=== PATIENT | female | born 1990 ===

== ENCOUNTER 2017-11-10 23:42 | Outpatient (CLI) | payer BC ==
[~2017-11-10] VITALS: Ht 170.2 cm; Wt 77.3 kg
[2017-11-10 23:56] VITALS: BP 111/65
[2017-11-11] MEDS ORDERED: PREN-59 PO (00:03)
== END 2017-11-11 00:15 | disposition home or self-care (01) ==
LOC: LDOP 23:42
PROVIDERS: ATTEND Obstetrics & Gynecology Maternal & Fetal Medicine
DX: O36.8130 Decreased fetal movements, third trimester, not applicable or unspecified (principal); Z3A.34 34 weeks gestation of pregnancy
CPT/HCPCS: 59025; 99201; G0463

== ENCOUNTER 2017-12-18 07:25 | Inpatient (IN) | payer BC ==
[~2017-12-18] VITALS: Ht 170.2 cm; Wt 79.5 kg
[~2017-12-18 07:25] MED LIST: PREN-59 PO
[2017-12-18] MEDS ORDERED: D5%-LACTATED RINGERS 1,000 ML IV SCH (07:34)
[2017-12-18] MEDS ORDERED: OXYTOCIN 30U/ 0.9% NaCL 500ML 500 ML IV PRN (07:34)
[2017-12-18] MEDS ORDERED: OXYTOCIN 30U/ 0.9% NaCL 500ML 500 ML IV ONE (07:34)
[2017-12-18] MEDS: LACTATED RINGERS 1,000 ML IV SCH ×2 (07:52→14:04)
[2017-12-18 07:59] LABS: BASOPHILS # (AUTO) 0.04 x10^3/uL (0-0.1); BASOPHILS % (AUTO) 0 % (0-1); EOSINOPHILS # (AUTO) 0.09 x10^3/uL (0-0.4); EOSINOPHILS % (AUTO) 1 % (1-7); LYMPHOCYTES # (AUTO) 1.49 x10^3/uL (1-3.4); LYMPHOCYTES % (AUTO) 15 % (22-44); MD NO; MEAN CORPUSCULAR HEMOGLOBIN 29.6 pg (27.0-34.8); MEAN CORPUSCULAR HGB CONC 33.6 g/dL (32.4-35.8); MEAN CORPUSCULAR VOLUME 88.1 fL (80-100); MEAN PLATELET VOLUME 8.1 fL (7.4-10.4); MONOCYTES # (AUTO) 0.46 x10^3/uL (0.2-0.8); MONOCYTES % (AUTO) 5 % (2-9); NEUTROPHILS # (AUTO) 7.78 x10^3/uL (1.8-6.8); NEUTROPHILS % (AUTO) 79 % (42-75); PLATELET COUNT 195 x10^3/uL (130-400); RED BLOOD COUNT 4.25 x10^6/uL (3.82-5.3); RED CELL DISTRIBUTION WIDTH 13.2 % (9.6-15.2)
[2017-12-18] MEDS ORDERED: FENTANYL PF 100 MCG/2ML IV PRN (08:00)
[2017-12-18] MEDS ORDERED: ONDANSETRON 2MG/ML, 2ML IVPush PRN (08:00)
[2017-12-18] MEDS ORDERED: TERBUTALINE 1 MG/ML, 1ML IVPush PRN (08:00)
[2017-12-18] MEDS ORDERED: METOCLOPRAMIDE 5 MG/ML, 2ML IVPush PRN (08:00)
[2017-12-18] MEDS ORDERED: SODIUM CITRATE/CITRIC ACID 30 ML UDC PO PRN (08:00)
[2017-12-18] MEDS ORDERED: FENTANYL PF 100 MCG/2ML IVPush PRN (08:00)
[2017-12-18] MEDS ORDERED: OXYTOCIN 30U/ 0.9% NaCL 500ML 500 ML ONE ×2 (08:19→16:25)
[2017-12-18] MEDS ORDERED: NEWBORN KIT ONE (08:19)
[2017-12-18] MEDS ORDERED: FENTANYL/BUPIV./NS/PF 250 ML EPIDCONT SCH (08:45)
[2017-12-18 08:50] VITALS: BP 112/78
[2017-12-18] MEDS ORDERED: FENTANYL PF 500 MCG, BUPIVACAINE/PF 0.5%, 30ML 62.5 ML in SODIUM CHLORIDE 0.9% 177.5 ML EPIDCONT SCH (09:30)
[2017-12-18] MEDS ORDERED: FENTANYL PF 100 MCG/2ML ONE (13:59)
[2017-12-18] MEDS ORDERED: TERBUTALINE 1 MG/ML, 1ML ONE (14:26)
[2017-12-18] MEDS: OXYTOCIN 30U/ 0.9% NaCL 500ML 500 ML IV SCH (14:47)
[2017-12-18] MEDS ORDERED: IBUPROFEN 600 MG TABLET ONE (14:50)
[2017-12-18] MEDS ORDERED: OXYcodone/APAP 5/325MG TABLET ONE (14:52)
[2017-12-18] MEDS: IBUPROFEN 600 MG TABLET PO PRN ×2 (14:54→21:37)
[2017-12-18] MEDS ORDERED: ACETAMINOPHEN 325 MG TABLET PO PRN (15:00)
[2017-12-18] MEDS ORDERED: OXYcodone/APAP 5/325MG TABLET PO PRN (15:00)
[2017-12-18] MEDS ORDERED: RHOGAM FROM BLOOD BANK 1 NOTE EA IM/IV ONE (15:00)
[2017-12-18] MEDS ORDERED: MISOPROSTOL 200 MCG TABLET PR PRN (15:00)
[2017-12-18] MEDS ORDERED: DIPH,PERTUSS(ACELL),TET VAC/PF NC IM-VACC PRN (15:00)
[2017-12-18] MEDS ORDERED: CARBOPROST TROMETHAMINE 250 MCG/ML, 1ML IM PRN (15:00)
[2017-12-18] MEDS ORDERED: METHYLERGONOVINE 0.2 MG/ML IM PRN (15:00)
[2017-12-18] MEDS ORDERED: MEASLES,MUMPS&RUBELLA VACC/PF 0.5 ML SQ PRN (15:00)
[2017-12-18 16:30] VITALS: BP 102/66
[2017-12-18] MEDS: OXYcodone/APAP 5/325MG TABLET PO PRN (19:30)
[2017-12-18 19:40] VITALS: BP 105/68
[2017-12-18] MEDS: DOCUSATE 100 MG CAPSULE PO PRN (21:37)
[2017-12-19 00:20] VITALS: BP 94/62
[2017-12-19] MEDS: OXYTOCIN 30U/ 0.9% NaCL 500ML 500 ML IV SCH ×2 (00:47→02:05)
[2017-12-19] MEDS: OXYcodone/APAP 5/325MG TABLET PO PRN ×3 (01:57→13:26)
[2017-12-19] MEDS: IBUPROFEN 600 MG TABLET PO PRN ×2 (04:06→13:26)
[2017-12-19 04:10] VITALS: BP 98/63
[2017-12-19 05:53] LABS: BASOPHILS # (AUTO) 0.03 x10^3/uL (0-0.1); BASOPHILS % (AUTO) 0 % (0-1); EOSINOPHILS # (AUTO) 0.15 x10^3/uL (0-0.4); EOSINOPHILS % (AUTO) 1 % (1-7); LYMPHOCYTES # (AUTO) 2.15 x10^3/uL (1-3.4); LYMPHOCYTES % (AUTO) 18 % (22-44); MD NO; MEAN CORPUSCULAR HEMOGLOBIN 30.5 pg (27.0-34.8); MEAN CORPUSCULAR HGB CONC 34.3 g/dL (32.4-35.8); MEAN CORPUSCULAR VOLUME 88.8 fL (80-100); MEAN PLATELET VOLUME 8.1 fL (7.4-10.4); MONOCYTES # (AUTO) 0.77 x10^3/uL (0.2-0.8); MONOCYTES % (AUTO) 6 % (2-9); NEUTROPHILS # (AUTO) 8.96 x10^3/uL (1.8-6.8); NEUTROPHILS % (AUTO) 74 % (42-75); PLATELET COUNT 164 x10^3/uL (130-400); RED CELL DISTRIBUTION WIDTH 13.3 % (9.6-15.2)
[2017-12-19 07:55] VITALS: BP 106/67
[2017-12-19] MEDS: DOCUSATE 100 MG CAPSULE PO PRN (07:56)
[2017-12-19] MEDS ORDERED: PRENATAL VIT/IRON/FA 1 EACH TABLET PO SCH (09:00)
== END 2017-12-19 15:10 | disposition home or self-care (01) | DRG 807 ==
LOC: LDIP 07:25 → 2NW 16:29
PROVIDERS: ADMIT Obstetrics & Gynecology Maternal & Fetal Medicine; ATTEND Obstetrics & Gynecology Maternal & Fetal Medicine
PROC: 10E0XZZ Delivery of Products of Conception, External Approach (ICD-10-PCS; principal; 2017-12-18)
PROC: 3E033VJ Introduction of Other Hormone into Peripheral Vein, Percutaneous Approach (ICD-10-PCS; 2017-12-18)
PROC: 10907ZC Drainage of Amniotic Fluid, Therapeutic from Products of Conception, Via Natural or Artificial Opening (ICD-10-PCS; 2017-12-18)
DX: O71.82 Other specified trauma to perineum and vulva (principal); Z37.0 Single live birth; Z3A.39 39 weeks gestation of pregnancy
CPT/HCPCS: 36415; 85025; 86850; 86900; G0378; J3010; J2590; J7120

== ENCOUNTER 2020-10-21 18:41 | Emergency (ER) | payer BC, OTHER ==
[~2020-10-21] VITALS: Ht 170.2 cm; Wt 64.6 kg
--- NOTE | 2020-10-21 19:21 | NUR ---
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
--- NOTE | 2020-10-21 19:30 | NUR ---
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
[2020-10-21 19:49] LABS: MICROSCOPIC AUTO
[2020-10-21 20:15] LABS: BASOPHILS % (AUTO) 0 % (0-1); EOSINOPHILS % (AUTO) 1 % (1-7); LYMPHOCYTES % (AUTO) 14 % (22-44); MEAN CORPUSCULAR HEMOGLOBIN 31.9 pg (27.0-34.8); MEAN CORPUSCULAR HGB CONC 34.5 g/dL (32.4-35.8); MEAN PLATELET VOLUME 7.4 fL (7.4-10.4); MONOCYTES % (AUTO) 6 % (2-9); NEUTROPHILS % (AUTO) 79 % (42-75); PLATELET COUNT 221 x10^3/uL (130-400); RED BLOOD COUNT 4.83 x10^6/uL (3.82-5.3); RED CELL DISTRIBUTION WIDTH 12.8 % (9.6-15.2)
[2020-10-21 20:25] LABS: ALBUMIN 3.5 g/dL (3.4-5.0); ANION GAP 6 mmol/L (5-15); CALCIUM 9.2 mg/dL (8.5-10.1); CHLORIDE 105 mmol/L (98-107)
[2020-10-21 20:31] LABS: ALANINE AMINOTRANSFERASE 24 U/L (12-78); ALKALINE PHOSPHATASE 68 U/L (45-117); BILIRUBIN,TOTAL 0.5 mg/dL (0.2-1.0); CREATININE 0.86 mg/dL (0.55-1.02); TOTAL PROTEIN 7.9 g/dL (6.4-8.2)
--- NOTE | 2020-10-22 00:14 | NUR ---
PT BACK TO ROOM
[2020-10-22 00:22] VITALS: BP 134/76
--- NOTE | 2020-10-22 00:32 | NUR ---
CC OF LLQ ABD PAIN AND BACK PAIN SINCE FRIDAY WITH CONSTIPATION. PT DOES REPORT PASSING GAS AND HAVING BM TODAY. PT DENIES ANY PAIN WITH URINATION. ALSO HAS C/O UPPER LIP SWELLING SINCE TODAY. NO SOB OR DIFFICULTY BREATHING, ABLE TO SPEAK IN FULL SENTENCES.
[2020-10-22] MEDS ORDERED: HYDROcodone/APAP 5/325 TABLET ONE (01:14)
--- NOTE | 2020-10-22 01:15 | NUR ---
pt states her pain has returned and is requesting pain medications before going home. dr park to place orders
[2020-10-22] MEDS ORDERED: HYDROcodone/APAP 5/325 TABLET PO PRN (01:30)
== END 2020-10-22 01:35 | disposition home or self-care (01) ==
LOC: ED 23:59
DX: K52.9 Noninfective gastroenteritis and colitis, unspecified (principal); N30.00 Acute cystitis without hematuria; R10.32 Left lower quadrant pain
CPT/HCPCS: 36415; 74176; 80053; 81001; 83690; 84703; 85025; 87077; 87086; 87186; 99284